=== PATIENT | female | born 1960 | race Caucasian/White ===

== ENCOUNTER 2019-02-20 21:40 | Emergency (ER) | payer OTHER ==
[~2019-02-20] VITALS: Ht 167.6 cm; Wt 102.1 kg
--- OUTSIDE RECORDS SUMMARY | ~2019-02-20 | XMS | Clinical Summary ---
Demographics + + + | Address | [address] | | | [place] [address] | + + + | Home Phone | | + + + | Preferred Language | Unknown | + + + | Marital Status | | + + + | Sikh Affiliation | Unknown | + + + | Race | White | + + + | Ethnic Group | Not or | + + + Author + + + | Author | [facility] | + + + | Organization | [facility] | + + + | Address | Unknown | + + + | Phone | Unavailable | + + + Support + + +---------+ + | Name | Relationship | Address | Phone | + + +---------+ + | BERNABE ASHLEY | ECON | Unknown | | + + +---------+ + Care Team Providers + +------+ + | Care Link Cutter Name | Role | Phone | + +------+ + PP | Unavailable | + +------+ + Source Comments [facility] is fully live on both [facility] and [facility] Allergies + + + + + + | Active Allergy | Reactions | Severity | Noted | Comments | | | | | Date | | + + + + + + | Morphine | | | 02/16/20 | | | | | | 12 | | + + + + + + Current Medications + + +-------+---------+------+------+-------+ | Prescription | Sig. | Disp. | Refills | Star | End | Statu | | | | | | t | Date | s | | | | | | Date | | | + + +-------+---------+------+------+-------+ | valACYclovir | Take 500 mg by mouth | | | | | Activ | | (VALTREX) 500 mg | as needed. | | | | | e | | Oral Tablet | | | | | | | + + +-------+---------+------+------+-------+ | citalopram 10 mg | Take 10 mg by mouth | | | | | Activ | | Oral Tablet | once daily. | | | | | e | + + +-------+---------+------+------+-------+ | lisinopril 20 mg | Take 20 mg by mouth | | | | | Activ | | Oral Tablet | once daily. | | | | | e | + + +-------+---------+------+------+-------+ | BUPROPION HCL | Take 300 mg by mouth | | | | | Activ | | (WELLBUTRIN ORAL) | once daily. | | | | | e | + + +-------+---------+------+------+-------+ | promethazine | Insert 25 mg | | | | | Activ | | (PROMETHEGAN) 25 mg | rectally as needed. | | | | | e | | Rectal Suppository | | | | | | | + + +-------+---------+------+------+-------+ | BLACK COHOSH ORAL | Take by mouth once | | | | | Activ | | | daily. | | | | | e | + + +-------+---------+------+------+-------+ Active Problems Not on file Family History + + +------+ + | Medical History | Relation | Name | Comments | + + +------+ + | Hypertension | Brother | | | + + +------+ + | Arthritis | Father | | | + + +------+ + | Heart Disease | Father | | | + + +------+ + | Hypertension | Father | | | + + +------+ + | Arthritis | Maternal | | | | | Grandfath | | | | | er | | | + + +------+ + | Diabetes | Maternal | | | | | Grandfath | | | | | er | | | + + +------+ + | Arthritis | Maternal | | | | | Grandmoth | | | | | er | | | + + +------+ + | Arthritis | Mother | | | + + +------+ + | Cancer | Mother | | | + + +------+ + | Arthritis | Paternal | | | | | Grandfath | | | | | er | | | + + +------+ + | Arthritis | Paternal | | | | | Grandmoth | | | | | er | | | + + +------+ + | Diabetes | Paternal | | | | | Grandmoth | | | | | er | | | + + +------+ + + +------+--------+ + | Relation | Name | Status | Comments | + +------+--------+ + | Brother | | Alive | | + +------+--------+ + | Brother | | Alive | | + +------+--------+ + | Brother | | | | + +------+--------+ + | Father | | Alive | | + +------+--------+ + | Maternal Grandfather | | | | + +------+--------+ + | Maternal Grandmother | | | | + +------+--------+ + | Mother | | Alive | | + +------+--------+ + | Paternal Grandfather | | | | + +------+--------+ + | Paternal Grandmother | | | | + +------+--------+ + | Sister | | Alive | | + +------+--------+ + | Son | | Alive | | + +------+--------+ + | Son | | Alive | | + +------+--------+ + | Son | | Alive | | + +------+--------+ + Social History + +-------+ +--------+------+ | Tobacco Use | Types | Packs/Day | Years | Date | | | | | Used | | + +-------+ +--------+------+ | Never Smoker | | | | | + +-------+ +--------+------+ + + +---------+ + | Alcohol Use | Drinks/We | oz/Week | Comments | | | ek | | | + + +---------+ + | Yes | | | Occassionally | + + +---------+ + + + + | Sex Assigned at | Date Recorded | | | | + + + | Not on file | | + + + Last Filed Vital Signs + + + + | Vital Sign | Reading | Time Taken | + + + + | Blood Pressure | 127/87 | 02/16/2012 11:27 AM PDT | + + + + | Pulse | 85 | 02/16/2012 11:27 AM PDT | + + + + | Temperature | 37.1 C (98.8 F) | 02/16/2012 11:27 AM PDT | + + + + | Respiratory Rate | - | - | + + + + | Oxygen Saturation | - | - | + + + + | Inhaled Oxygen | - | - | | Concentration | | | + + + + | Weight | 96.4 kg (212 lb 9.6 | 02/16/2012 11:27 AM PDT | | | oz) | | + + + + | Height | - | - | + + + + | Body Mass Index | - | - | + + + + Plan of Treatment + + + + + | Health Maintenance | Due Date | Last Done | Comments | + + + + + | Influenza (Flu) | | | | | vaccination (#1) | 8 | | | + + + + + Results Not on filefrom Last 3 Months Insurance + +--------+ +------+ + + | Payer | Benefi | Subscriber | Type | Phone | Address | | | t Plan | ID | | | | | | / | | | | | | | Group | | | | | + +--------+ +------+ + + | BLUE CROSS BLUE | BCBS | xxxxxxxxxxx | PPO | [phone] | [address] [address] [place] | | SHIELD | OUT OF | [phone] | | [phone] | [place], [place] | | | [place] | | | | [address] | + +--------+ +------+ + + + +--------+ +--------+ + + | Guarantor Name | Accoun | Relation to | Date | Phone | Billing Address | | | t Type | Patient | of | | | | | | | | | | + +--------+ +--------+ + + | ELSIE ASHLEY | Person | Self [birth year] | Work: | [address] | | | [address] | | 1959 | [phone] | [address] [place] | | | [place] | | | [phone]: | [address] | | | | | | | | | | | | | [phone] | | | | | | | [phone] | | + +--------+ +--------+ + +"
--- OUTSIDE RECORDS SUMMARY | ~2019-02-20 | XMS | Clinical Summary ---
Demographics + + + | Address | [address] | | | [place] [address] | + + + | Home Phone | | + + + | Preferred Language | Unknown | + + + | Marital Status | | + + + | Confucianist Affiliation | Unknown | + + + | Race | Unknown | + + + | Ethnic Group | Unknown | + + + Author + + + | Author | [facility] | | | and [place] | + + + | Organization | [facility] | | | and [place] | + + + | Address | Unknown | + + + | Phone | Unavailable | + + + Support + + +---------+ + | Name | Relationship | Address | Phone | + + +---------+ + | Baudilio Ashley | Unknown | | + + +---------+ + Care Team Providers + +------+ + | Care Pot Fireman Name | Role | Phone | + [...] + + + Current Medications + + +--------+---------+------+------+-------+ | Prescription | Sig. | Disp. | Refills | Star | End | Statu | | | | | | t | Date | s | | | | | | Date | | | + + +--------+---------+------+------+-------+ | buPROPion | Take 300 mg by mouth | | | | | Activ | | (WELLBUTRIN XL) 300 | every morning. | | | | | e | | mg 24 hr tablet | | | | | | | + + +--------+---------+------+------+-------+ | citalopram | Take 40 mg by mouth | | | | | Activ | | (CELEXA) 40 mg | Daily. | | | | | e | | tablet | | | | | | | + + +--------+---------+------+------+-------+ | lisinopril | Take 20 mg by mouth | | | | | Activ | | (PRINIVIL, ZESTRIL) | Daily. | | | | | e | | 20 mg tablet | | | | | | | + + +--------+---------+------+------+-------+ | pramipexole | Take 0.75 mg by | | | | | Activ | | (MIRAPEX) 0.75 MG | mouth 3 times daily. | | | | | e | | tablet | | | | | | | + + +--------+---------+------+------+-------+ | | Take 1 tablet by | [...] | | | | | + + +--------+---------+------+------+-------+ Active Problems Not on file Social History [...] + | Blood Pressure | 113/78 | 03/13/20180 PDT | + + + + | Pulse | 79 | 03/13/20181039 PDT | + + + [...] | Body Mass Index | 37.12 | 03/13/20181039 PDT | + + + + Plan [...] Vaccine: Influenza | | | | | (#1) | 8 | | | + + + + + Results Not on filefrom Last 3 Months Insurance +-------+--------+ +------+ +---------+ | Payer | Benefi | Subscriber | Type | Phone | Address | | | t Plan | ID | | | | | | / | | | | | | | Group | | | | | +-------+--------+ +------+ +---------+ | GEHA | GEHA | [id number] | PPO | [phone] | | | | AETNA | | | [phone] | | | | PPO | | | | | +-------+--------+ +------+ +---------+ + +--------+ +--------+ + + | Guarantor Name | Accoun | Relation to | Date | Phone | Billing Address | | | t Type | Patient | of | | | | | | | | | | + +--------+ +--------+ + + | ELSIE ASHLEY | Person | Self | [birth year] | Home: | [address] | | | al/Fam | | 1960 | [phone] | [address] | | | [place] | | | [phone] | [place] [address] | + +--------+ +--------+ + +
--- OUTSIDE RECORDS SUMMARY | ~2019-02-20 | XMS | Clinical Summary ---
Demographics + + + | Address | [address] | | | [place] [address] | + + + | Home Phone | | + + + | Preferred Language | Unknown | + + + | Marital Status | | + + + | Christian Affiliation | Unknown | + + + [...] Team Providers + +------+ + | Care Economic Development Specialist Name | Role | Phone | + +------+ + PP | Unavailable | + +------+ + Source Comments [facility] is fully live on both [facility] Ambulatory and [facility] InPatient.[facility] Allergies + + + + [...] | BCBS | [phone] | PPO | [phone] | [address] [address] [place] | | SHIELD | OUT OF | x | | [phone] | [place], [place] | | | STATE | | | | [address] | + +--------+ +------+ + + + [...] | | [address] | | 1959 | [phone] | [address] [place] | | | [place] | | | [address] Home: | [address] | | | | | | | | | | | | | [phone] | | | | | | | [phone] | | + +--------+ +--------+ + +"
--- OUTSIDE RECORDS SUMMARY | ~2019-02-20 | XMS | Clinical Summary ---
Demographics + + + | Address | [address] | | | [place] [address] | + + + | Home Phone | | + + + | Preferred Language | Unknown | + + + | Marital Status | | + + + | Advent Affiliation | Unknown | + + + | Race | Unknown | + + + | Ethnic Group | Unknown | + + + Author + + + | Author | [facility] | | | and [place] | + + + | Organization | [facility] | | | and [place] | + + + | Address | Unknown | + + + | Phone | Unavailable | + + + Support + + +---------+ + | Name | Relationship | Address | Phone | + + +---------+ + | Baudilio Ashley | Unknown | | + + +---------+ + Care Team Providers + +------+ + | Care Lean Consultant Name | Role | Phone | [...] +------+ +---------+ | GEHA | GEHA | [id number] | PPO | [phone] | | [...] | [birth year] | Home: | [address] | | | al/Fam | | 1960 | [phone] | [address] | | | [place] | | | [phone] | [place] [address] | + +--------+ +--------+ + +
[~2019-02-20 21:40] MED LIST: ANAPROX DS550 MG PO; CALCIUM 600 +1 EACH PO; CELEXA10 MG PO; CELEXA20 MG PO; CELEXA40 MG PO; DAILY VITAMIN1 EAC2 PO; DILAUDID4 MG PO; LISINOPRIL20 MG PO; LISINOPRIL40 MG PO; MIRAPEX0.75 MG PO; OXYCODONE HCL10 MG PO; OXYCONTIN10 MG PO; PERCOCET 10-321 EACH PO; SUMATRIPTAN SU100 MG PO; VALIUM5 MG PO; VALTREX1000 MG PO; WELLBUTRIN XL300 MG PO; XARELTO10 MG PO; XARELTO20 MG PO
== END 2019-02-21 00:44 | disposition home or self-care (01) ==
LOC: ED 21:40
DX: G89.18 Other acute postprocedural pain (principal); J34.89 Other specified disorders of nose and nasal sinuses; I10 Essential (primary) hypertension; F32.9 Major depressive disorder, single episode, unspecified; F41.9 Anxiety disorder, unspecified; E66.9 Obesity, unspecified; Z88.5 Allergy status to narcotic agent; Z79.899 Other long term (current) drug therapy
CPT/HCPCS: 99283

== ENCOUNTER 2019-04-07 11:31 | Emergency (ER) | payer OTHER ==
[~2019-04-07] VITALS: Ht 167.6 cm; Wt 113.4 kg
--- OUTSIDE RECORDS SUMMARY | ~2019-04-07 | XMS | Encounter Summary ---
Demographics + + + | Address | [address] | | | [place] [address] | + + + | Home Phone | | + + + | Preferred Language | Unknown | + + + | Marital Status | | + + + | Cheondoism Affiliation | Unknown | + + + | Race | White | + + + | Ethnic Group | Not or | + + + Author + + + | Author | [facility] | + + + | Organization | [facility] | + + + | Address | Unknown | + + + | Phone | Unavailable | + + + Support + + +---------+ + | Name | Relationship | Address | Phone | + + +---------+ + | Baudilio Lyles | ECON | Unknown | | + + +---------+ + Care Team Providers + +------+ + | Care Booster Operator Name | Role | Phone | + +------+ + | Cain Del Angel MD | PCP | | + +------+ + Reason for Visit + + + | Reason | Comments | + + + | New patient | | | consultation | | + + + Consultation (Routine) +--------+--------+ + + + + | Status | Reason | Specialty | Diagnoses / | Referred By | Referred To | | | | | Procedures | Contact | Contact | +--------+--------+ + + + + | Closed | | Neurological | Diagnoses | Bean, | Micheal | | | | Surgery | BCBS | Cain Garrett, | MD [address] | | | | | cerebral | MD | [address] | | | | | mass | [place] | [place], [place] | | | | | | FAMILY | [address] | | | | | | MEDICINE | Phone: | | | | | | [address] | [phone] | | | | | | [address] | Fax: | | | | | | [place], | [phone] | | | | | | [place] [address] | | | | | | | Phone: | | | | | | | [phone] | | | | | | | Fax: | | | | | | | [phone] | | +--------+--------+ + + + + Encounter Details +--------+---------+ + + + | Date | Type | Department | Care Team | Description | +--------+---------+ + + + | 02/15/ | Office | Neurosurgery at | Zuri Burton MD | Skull lesion | | 2011 | Visit | [facility] [address] | [address] | (Primary Dx) | | | | Ave Mailcode: CH8N | [place], [place] | | | | | [facility] | [address] | | | | | and [address], [address]th | [phone] | | | | | Floor [place], [place] | | | | | | [address] | | | | | | [phone] | | | +--------+---------+ + + + Social History + +-------+ +--------+------+ | Tobacco Use | Types | Packs/Day | Years | Date | | | | | Used | | + +-------+ +--------+------+ | Never Smoker | | | | | + +-------+ +--------+------+ + + +---------+ + | Alcohol Use | Drinks/Week | oz/Week | Comments | + + +---------+ + | Yes | | | Occassionally | + + +---------+ + + + + | Sex Assigned at | Date Recorded | | | | + + + | Not on file | | + + + + + + + | Job Start Date | Occupation | Industry | + + + + | Not on file | Not on file | Not on file | + + + + + + + + | Travel History | Travel Start | Travel End | + + + + + + | No recent travel history available. | + + documented as of this encounter Last Filed Vital Signs + + + + + | Vital Sign | Reading | Time Taken | Comments | + + + + + | Blood Pressure | 127/87 | 02/16/2012 11:27 AM | | | | | PDT | | + + + + + | Pulse | 85 | 02/16/2012 11:27 AM | | | | | PDT | | + + + + + | Temperature | 37.1 C (98.8 F) | 02/16/2012 11:27 AM | | | | | PDT | | + + + + + | Respiratory Rate | - | - | | + + + + + | Oxygen Saturation | - | - | | + + + + + | Inhaled Oxygen | - | - | | | Concentration | | | | + + + + + | Weight | 96.4 kg (212 lb 9.6 | 02/16/2012 11:27 AM | | | | oz) | PDT | | + + + + + | Height | - | - | | + + + + + | Body Mass Index | - | - | | + + + + + documented in this encounter Progress Notes Kobe Freedman MD - 02/16/2012 3:34 PM PDTThis patient is a 51 year old woman who pr esents to clinic today with a history of migraine headaches. 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 Her headaches are described as being global in nature, and with a jabbing behind her right eye. She states that she develops nausea, and vomiting. She also develops some dizziness w ith the headaches, and must then lie down until it abates. Her past medical history is significant for anxiety, hypertension, depression, migraine, an xiety. Her past surgical history is significant for section, hysterectomy, cholecystectom y, knee surgery, and shoulder surgery. Socially, the patient denies the use of any recreational drugs or alcohol. On review of systems, The patient denies evidence of headache, visual changes, dysphagia, d ysphonia, palpitations, dyspnea on exertion, shortness of breath, bowel issues, bladder prob lems, musculoskeletal issues, and denies psychiatric disturbance. On exam, the patient is appropriately conversational. CN II XII are intact on gross te sting. The patient has symmetric strength 5/5 in all extremities. Sensation also appears i ntact. No pathologic reflexes. No focal neurologic issues. The MRI that we reviewed was from 2010. It revealed a small hyperintensity and contrast en hancing lesion within the bone of the right parietal area. This area was of the dimensions above. There was no communication or mass effect on the brain. The lesion was not expandin g the bone. We reviewed that 2011 image with the MRI done in 2008. The same lesion was seen on that MR I as well. We now have a situation with two MRI s by time that demonstrate the same lesion that has not changed in any measurable way. Likely this has been there for the entire life of the patient, and it definitely has nothin g to do with her headaches and migraines. There is nothing to do for this lesion at the rrent time, but we would like for the patient to send us the CT scan that was done at the [facility], so that we can review it and have it for our records. We will see the pat ient on an as-needed basis. 3: 35 PM PDTdocumented in this encounter Plan of Treatment Not on filedocumented as of this encounter Procedures + +--------+ + + + | Procedure Name | Priori | Date/Time | Associated Diagnosis | Comments | | | ty | | | | + +--------+ + + + | RADIOLOGY | | 02/16/2012 | | Results for this | | | | 12:00 AM | | procedure are in the | | | | PDT | | results section. | + +--------+ + + + documented in this encounter Results RADIOLOGY (02/16/2012 12:00 AM PDT) + + + | Narrative | Performed At | + + + | | | + + + + + | Transcriptions | + + | Donny Giron - 07/05/2012 11:10 PM PDT | + + documented in this encounter Visit Diagnoses + + | Diagnosis | + + | Skull lesion - Primary Disorder of bone and cartilage, unspecified | + + documented in this encounter"
--- OUTSIDE RECORDS SUMMARY | ~2019-04-07 | XMS | Encounter Summary ---
Demographics + + + | Address | [address] | | | [place] [address] | + + + | Home Phone | | + + + | Preferred Language | Unknown | + + + | Marital Status | | + + + | Spiritism Affiliation | Unknown | + + + [...] Team Providers + +------+ + | Care Wire Spinner Name | Role | Phone | + [...] | | | mass | [address] | [place], [place] | | | | | | FAMILY | [address] | | | | | | MEDICINE | Phone: | | | | | | [address] | [phone] | | | | | | [address] | Fax: | | | | | | [place], | [phone] | | | | | | [place] [address] | | | | | | | Phone: | | | | | | | [phone] | | | | | | | Fax: | | | | | | | [phone] | | +--------+--------+ + + + + Encounter Details +--------+---------+ + + + | Date | Type | Department | Care Team | Description | +--------+---------+ + + + | 02/15/ | Office | Neurosurgery at | Zuri Burton MD | Skull lesion | | 2011 | Visit | [facility] [address] | [address] | (Primary Dx) | | | | Ave Mailcode: CH8N | [place], [place] | | | | | [facility] | [address] | | | | | and [address], [address] | [phone] | | | | | Floor [place], [place] | | | | | | [address] | | | | | | [phone] | | | +--------+---------+ + + + [...] headaches. She was worked up at an [facility] and found to have a small 18 [...] CT scan that was done at the [facility], so that we can review it and [...]
--- OUTSIDE RECORDS SUMMARY | ~2019-04-07 | XMS | Clinical Summary ---
Demographics + + + | Address | [address] | | | [place] [address] | + + + | Home Phone | | + + + | Preferred Language | Unknown | + + + | Marital Status | | + + + | Samaritan Affiliation | Unknown | + + + | Race | Unknown | + + + | Ethnic Group | Unknown | + + + Author + + + | Author | [facility] | | | and [place] | + + + | Organization | [facility] | | | and [place] | + + + | Address | Unknown | + + + | Phone | Unavailable | + + + Support + + +---------+ + | Name | Relationship | Address | Phone | + + +---------+ + | Baudilio Lyles | Unknown | | + + +---------+ + Care Team Providers + +------+ + | Care Preassembler Printed Circuit Board Name | Role | Phone | + +------+ + | Cain Del Angel | PP | | | MD | | | + +------+ + Allergies + + + + + + | Active Allergy | Reactions | Severity | Noted | Comments | | | | | Date | | + + + + + + | Morphine | | | 03/13/20 | | | | | | 18 | | + + + + + + Medications + + + +---------+------+------+-------+ | Medication | Sig | Dispensed | Refills | Star | End | Statu | | | | | | t | Date | s | | | | | | Date | | | + + + +---------+------+------+-------+ | buPROPion | Take 300 mg by mouth | | 0 | | | Activ | | (WELLBUTRIN XL) 300 | every morning. | | | | | e | | mg 24 hr tablet | | | | | | | + + + +---------+------+------+-------+ | citalopram | Take 40 mg by mouth | | 0 | | | Activ | | (CELEXA) 40 mg | Daily. | | | | | e | | tablet | | | | | | | + + + +---------+------+------+-------+ | lisinopril | Take 20 mg by mouth | | 0 | | | Activ | | (PRINIVIL, ZESTRIL) | Daily. | | | | | e | | 20 mg tablet | | | | | | | + + + +---------+------+------+-------+ | pramipexole | Take 0.75 mg by | | 0 | | | Activ | | (MIRAPEX) 0.75 MG | mouth 3 times daily. | | | | | e | | tablet | | | | | | | + + + +---------+------+------+-------+ | | Take 1 tablet by | 10 | 0 | 04/1 | | Activ | | HYDROcodone-acetamin | mouth every 6 hours | tablet | | 7/20 | | e | | ophen (NORCO) 5-325 | as needed. | | | 18 | | | | mg per | | | | | | | | tabletIndications: | | | | | | | | Contusion of left | | | | | | | | index finger without | | | | | | | | damage to nail, | | | | | | | | initial encounter | | | | | | | + + + +---------+------+------+-------+ Active Problems Not on file Social History + +-------+ +--------+------+ | Tobacco Use | Types | Packs/Day | Years | Date | | | | | Used | | + +-------+ +--------+------+ | Never Assessed | | | | | + +-------+ +--------+------+ + + + | Sex Assigned at [...] recent travel history available. | + + Last Filed Vital Signs + + + + | Vital Sign | Reading | Time Taken | + + + + | Blood Pressure | 113/78 | 03/13/2018 1040 PDT | + + + + | Pulse | 79 | 03/13/2018 1040 PDT | + + + + | Temperature | 36.5 C (97.7 F) | 03/13/20181039 PDT | + + + + | Respiratory Rate | 18 | 03/13/20181039 PDT | + + + + | Oxygen Saturation | 96% | 03/13/20181039 PDT | + + + + | Inhaled Oxygen | - | - | | Concentration | | | + + + + | Weight | 104.3 kg (230 lb) | 03/13/20181039 PDT | + + + + | Height | 167.6 cm (5' 6") | 03/13/20181039 PDT | + + + + | Body Mass Index | 37.12 | 03/13/2018 1040 PDT | + + + + Plan of Treatment + + + + + | Health Maintenance | Due Date | Last Done | Comments | + + + + + | Vaccine: | | | | | Dtap/Tdap/Td (1 - | 1 | | | | Tdap) | | | | + + + + + | Cervical Cancer | | | | | Screening (Pap) | 2 | | | + + + + + | Vaccine: Zoster (1 | | | | | of 2) | 2 | | | + + + + + | Vaccine: Influenza | | | | | (Season Ended) | 9 | | | + + + + + Results Not on filefrom Last 3 Months Insurance +-------+--------+ +--------+ +---------+------+ | Payer | Benefi | Subscriber | Effect | Phone | Address | Type | | | t Plan | ID | isatu | | | | | | / | | Dates | | | | | | Group | | | | | | +-------+--------+ +--------+ +---------+------+ | GEHA | GEHA | [id number] | [phone] | | PPO | | | AETNA | | [id number]-[id number] | 6 | | | | | PPO | | esent | | | | +-------+--------+ +--------+ +---------+------+ + +--------+ +--------+ + + | Guarantor Name | Accoun | Relation to | Date | Phone | Billing Address | | | t Type | Patient | of | | | | | | | | | | + +--------+ +--------+ + + | Elsie Lyles | Person | Self | [birth year] | [address] | | | al/Fam | | 1960 | [phone] | [address] | | | [place] | | | [address] (Home) | [place] [address] | + +--------+ +--------+ + + Advance Directives Patient has advance care planning documents on file. For more information, please contact:[facility] [place] [address]
--- OUTSIDE RECORDS SUMMARY | ~2019-04-07 | XMS | Clinical Summary ---
Demographics + + + | Address | [address] | | | [place] [address] | + + + | Home Phone | | + + + | Preferred Language | Unknown | + + + | Marital Status | | + + + | Sikhism Affiliation | Unknown | + + + | Race | Unknown | + + + | Ethnic Group | Unknown | + + + Author + + + | Author | [facility] | | | and [place] | + + + | Organization | [facility] | | | and [place] [...] Team Providers + +------+ + | Care Learning Consultant Name | Role | Phone | + [...] +--------+ +---------+------+ | GEHA | GEHA | [id number] | | [phone] | | PPO | [...] Self | [birth year] | [address] | | | al/Fam | | 1960 | [phone] | | | freeman | | | 0 (Home) | [place] [address] | + +--------+ +--------+ + + Advance Directives Patient has advance care planning documents on file. For more information, please contact:Celina Merged with [facility] [place] [address]
--- OUTSIDE RECORDS SUMMARY | ~2019-04-07 | XMS | Clinical Summary ---
Demographics + + + | Address | [address] | | | [place] [address] | + + + | Home Phone | | + + + | Preferred Language | Unknown | + + + | Marital Status | | + + + | Islam Affiliation | Unknown | + + + | Race | White | + + + | Ethnic Group | Not or | + + + Author + + + | Author | [facility] | + + + | Organization | [...] Team Providers + +------+ + | Care User Experience Architect Name | Role | Phone | + +------+ + PP | Unavailable | + +------+ + Source Comments [facility] is fully live on both [facility] and [facility]Patient.[facility] Allergies + + + + + + [...] | | + + + +---------+------+------+-------+ | valACYclovir | Take 500 mg by mouth | | 0 | | | Activ | | (VALTREX) 500 mg | as needed. | | | | | e | | Oral Tablet | | | | | | | + + + +---------+------+------+-------+ | citalopram 10 mg | Take 10 mg by mouth | | 0 | | | Activ | | Oral Tablet | once daily. | | | | | e | + + + +---------+------+------+-------+ | lisinopril 20 mg | Take 20 mg by mouth | | 0 | | | Activ | | Oral Tablet | once daily. | | | | | e | + + + +---------+------+------+-------+ | BUPROPION HCL | Take 300 mg by mouth | | 0 | | | Activ | | (WELLBUTRIN ORAL) | once daily. | | | | | e | + + + +---------+------+------+-------+ | promethazine | Insert 25 mg | | 0 | | | Activ | | (PROMETHEGAN) 25 mg | rectally as needed. | | | | | e | | Rectal Suppository | | | | | | | + + + +---------+------+------+-------+ | BLACK COHOSH ORAL | Take by mouth once | | 0 | | | Activ | | | daily. | | | | | e | + + + +---------+------+------+-------+ Active Problems Not on file Family History [...] | | + + + + + Plan of Treatment + + + + + | Health Maintenance | Due Date | Last Done | Comments | + + + + + | Influenza (Flu) | | | | | vaccination (Season | 9 | | | | Ended) | | | | + + + + + Results Not on filefrom Last 3 Months Insurance + +--------+ +--------+ + +------+ | Payer | Benefi | Subscriber | Effect | Phone | Address | Type | | | t Plan | ID | isatu | | | | | | / | | Dates | | | | | | Group | | | | | | + +--------+ +--------+ + +------+ | [employer]UE | BCBS | xxxxxxxxxxx | Effect | [phone] | [address] | PPO | | SHIELD | OUT OF | x | [place] | 8 | [phone] [address] | | | | [place] | | for | | [place], | | | | | | all | | [place] | | | | | | dates | | [phone] | | + +--------+ +--------+ + +------+ + +--------+ +--------+ + + | Guarantor Name | Accoun | Relation to | Date | Phone | Billing Address | | | t Type | Patient | of | | | | | | | | | | + +--------+ +--------+ + + | Elsie Lyles | Person | Self [birth year] [address] | | | al/Fam | | 1960 | [phone] | [address] [place] | | | fre[place] | | | 0 (Home) | [id number] | | | | | | [phone] | | | | | | | 1 (Work) | | + +--------+ +--------+ + +"
--- OUTSIDE RECORDS SUMMARY | ~2019-04-07 | XMS | Clinical Summary ---
Demographics + + + | Address | [address] | | | [place] [address] | + + + | Home Phone | | + + + | Preferred Language | Unknown | + + + | Marital Status | | + + + | Taoism Affiliation | Unknown | + + + [...] Team Providers + +------+ + | Care Skin Lap Bonder Name | Role | Phone | + +------+ + PP | Unavailable | + +------+ + Source Comments [facility] is fully live on both [facility] and [facility] InPatient.[facility] Allergies + + [...] | BCBS | [phone] | Effect | [phone] | [address] | PPO | | SHIELD | OUT OF | x | [place] | 8 | [address] [address] | | | | STATE | | for | | [place], | | | | | | all | | [place] | | | | | | dates | | [phone] | | + +--------+ +--------+ + +------+ [...] | | al/Fam | | 1960 | [phone] | [address] [place] | | | [place] | | | 0 (Home) | [id number] | | | | | | [phone] | | | | | | | 1 (Work) | | + +--------+ +--------+ + +"
--- NOTE | 2019-04-07 18:27 | EKG ---
[facility] [address] [place], [place] [address] Signed Sinus tachycardia Otherwise normal ECG Confirmed by TYLER HANNON MD ([id number]) on 04/07/2019 6:27:10 PM Electronically Signed By: TYLER HANNON MD 04/07/19 1827 PATIENT NAME: MANAV ASHLEY Electrocardiogram DATE OF : 64 PHYSICIAN: TYLER HANNON MD REPORT #: [id number] REPORT IS CONFIDENTIAL AND NOT TO BE RELEASED WITHOUT AUTHORIZATION
== END 2019-04-07 17:25 | disposition home or self-care (01) ==
LOC: ED 11:31
DX: R07.89 Other chest pain (principal); R55 Syncope and collapse; E07.89 Other specified disorders of thyroid; I10 Essential (primary) hypertension; F32.9 Major depressive disorder, single episode, unspecified; F41.9 Anxiety disorder, unspecified; E66.9 Obesity, unspecified; Z90.710 Acquired absence of both cervix and uterus; Z90.49 Acquired absence of other specified parts of digestive tract; Z88.5 Allergy status to narcotic agent; Z79.899 Other long term (current) drug therapy
CPT/HCPCS: 71045; 71260; 80053; 83690; 84439; 84443; 84484; 85025; 85379; 93005; 93010; 99285-25